=== PATIENT | female | born 1955 | race Caucasian/White ===

== ENCOUNTER → 2016-05-20 | Outpatient (CLI) | payer OTHER ==
[~2016-05-20] MED LIST: ALBUTEROL17 GM INH; CALCIUM + D 6001 TA1 PO; CLARITIN10 M2 PO; IBUPROFEN800 MG PO; INDOMETHACIN50 MG PO; STIOLTO RESPIMAT4 GM INH; XANAX1 MG PO
--- NOTE | ~2016-05-20 | CT2 ---
[facility] A Service of [facility] & [facility] RADIOLOGY TEXT RESULTS PATIENT: KE[facility] 53 UN[facility] #: [id number] AGE: [address]: Kingston Huang III, MD SEX: F ORDER DR: [id number] [facility] [address] [place], [place] [address] [id number] O MR#: [id number] Acc #: [id number] NAME: KEANU GILBERT : 1955 SEX: F STUDY DATE/TIME: 05/20/2016 13:45 UNIT: [facility] ROOM: STUDY DESCRIPTION: CT Abd and Pelv W Cont Attending Physician: Kingston Huang III, M.D. Referring Physician: Kingston Huang III, M.D. Ordering Physician: Kingston Huang III, M.D. Primary Care Physician: Yayo Nieto M.D. MEDICAL IMAGING REPORT This report is preliminary unless electronic signature is present EXAM CT abdomen and pelvis with contrast, 05/20/2016 INDICATION Previous hernia repair August 2015. Persistent pain in the region of hernia repair. The patient has noticed a palpable mass in the region of hernia repair for the past 6-10 weeks. PROCEDURE Contrast-enhanced CT of the abdomen and pelvis. 100 mL of Isovue-370. TECHNIQUE This CT exam was performed with one or more of the following radiation dose reduction techniques: automatic exposure control, adjustment of mA and/or kV according to patient size, and iterative reconstruction. COMPARISON 06/19/2015 FINDINGS ABDOMEN WITH CONTRAST: Included lung bases are clear. The liver, spleen, kidneys, adrenal glands, pancreas and gallbladder are unremarkable. Bowel loops are nondilated. Appendix is normal. The patient has undergone interval repair of the fat-containing hernia midline upper abdomen. In the area of the repair, there is a 1.4 cm structure that has central fat attenuation and some mild surrounding soft tissue attenuation. No convincing evidence for reherniation. PELVIS WITH CONTRAST: There is a 2.7 cm cyst in the left adnexa that is stable. No pelvic fluid. No aggressive-appearing bone lesions. STS. [facility] A Service of [facility] & [facility] RADIOLOGY TEXT RESULTS PATIENT: KEANU GILBERT LOCATION: [facility] : 53 UNIT #: [id number] AGE: [address]: Kingston Huang III, MD SEX: F ORDER DR: IMPRESSION 1. Interval repair of the upper midline abdominal hernia. No convincing evidence for reherniation. 2. In the area of repair, there is a small fat-containing nodule in the subcutaneous fat. This may represent an area of evolving fat necrosis. 3. No acute findings are seen elsewhere. 4. Stable left adnexal cyst. Dictated by... Dayo Calderon M.D. THIS IS AN ELECTRONICALLY VERIFIED REPORT Dayo Calderon M.D. at 05/21/2016 7:09 AM LEO/andreas TD: 05/20/2016 23:20 JOB #: [id number] MEDICAL IMAGING REPORT COPY
[2016-05-20 14:06] LABS: POC - CREATININE 0.89 mg/dL (0.44-1.03); POC - GFR >60.0 mL/min (>60)
== END | disposition home or self-care (01) ==
LOC: CCAT 11:27
PROVIDERS: Surgery
DX: R19.00 Intra-abdominal and pelvic swelling, mass and lump, unspecified site (principal); N83.8 Other noninflammatory disorders of ovary, fallopian tube and broad ligament; Z98.890 Other specified postprocedural states
CPT/HCPCS: 74177; 82565; Q9967